=== PATIENT | female | born 1975 | race Caucasian/White ===

== ENCOUNTER 2016-11-11 07:38 | Day surgery (SDC) | payer BC ==
--- NOTE | 2016-10-26 14:59 | NUR ---
PMH, allergies, meds reviewed and documented. Preop and DOS instructions given and handout of Surgical Services and my contact information. Patient was tearful today.
[~2016-11-11] VITALS: Ht 165.1 cm; Wt 137.4 kg
[2016-11-11] VITALS (7 sets, daily range): BP systolic 110–143; BP diastolic 55–77; PULSE 60–75; RESP 12–20; TEMP 97.2–98.5; O2SAT 88–98; Ht 165.1 cm; Wt 137.4 kg
[~2016-11-11 07:38] MED LIST: ACYC200C PO; ATEN25TA PO; DEXT1TAB PO; IPRA42SP EA NOSTRIL; LR 1,000 ML IV SCH; NORG1TAB12 PO; SIMV20TA6 PO; [UNRECOGNIZED DRUG - OTHER] PO
--- OUTSIDE RECORDS SUMMARY | 2016-11-11 07:46 | XMS REPORT | Continuity of Care Document ---
Demographics Preferred Language Unknown Marital Status Unknown Hinduism Affiliation Unknown Race Unknown Ethnic Group Unknown Author Author [facility] Organization [facility] Address Unknown Phone Unavailable Allergies Medications Problems Procedures Results Encounters ACCT No. Visit Date/Time Discharge Status Pt. Type Provider Facility Loc./Unit Complaint [id number] 10/08/2016 15:11:00 ACT Unknown [id number] 10/06/2016 09:38:00 ACT Unknown [id number] 10/06/2016 09:38:00 ACT Unknown [id number] 07/22/2016 12:41:00 ACT Unknown [id number] 06/29/2016 14:06:00 ACT Unknown [id number] 03/03/2016 07:41:00 ACT Unknown [id number] 11/04/2015 07:43:00 ACT Unknown [id number] 10/16/2015 12:46:00 ACT Unknown [id number] 10/16/2015 12:46:00 ACT Unknown [id number] 10/05/2014 08:58:00 ACT Unknown [id number] 09/26/2014 09:45:00 ACT Unknown
--- OUTSIDE RECORDS SUMMARY | 2016-11-11 07:49 | XMS REPORT | CCD ---
Author Author BISI JOHNSON Organization Unknown Address [address], [place] [id number] Phone 0 Care Team Providers Care Viticulture Teacher Name Role Phone MIN DOLL Attending Physician 0 MIN DOLL Primary Surgeon 0 Vital Signs Unknown or Not Available. Allergies Allergy Code Allergy Type Reaction Status AMOXICILLIN 723 Drug allergy Active Procedures Unknown or Not Available. History of Immunizations Immunization Code Date influenza, unspecified formulation 88 07/2016 Problems Unknown or Not Available. Results COMP METABOLIC - Collect Date/Time: 06/10/2016 06:25 Test Name Code Test Result Test Units Test Ref Range GLUCOSE 133 mg/dL L=70 H=110 BUN 8 mg/dL L=7 H=18 CREATININE 0.64 mg/ dL L=0.60 H=1.30 AGE 40 YEARS GFR 102.8 SODIUM 139 mmol/L L=136 H=145 POTASSIUM 3.5 mmol/ L L=3.5 H=5.1 CHLORIDE 103 mmol/L L=98 H=107 CO2 26 mmol/L L=21 H=32 CALCIUM 9.1 mg/dL L=8.5 H=10.1 AST 2 U/L L=15 H=37 ALT 16 U/L L=12 H=78 ALKALINE PHOS 89 U/ L L=50 H=136 TOTAL PROTEIN 7.7 g/ dL L=6.4 H=8.2 ALBUMIN 3.5 g/dL L=3.4 H=5.0 TOTAL BILI 0.30 mg/ dL L=0.00 H=1.00 HGB A1C - Collect Date/Time: 06/10/2016 06:25 Test Name Code Test Result Test Units Test Ref Range HGB A1C 5.9 % L=4.5 H=6.2 eAG 123 mg/dL CBC W/ DIFF - Collect Date/Time: 06/10/2016 06:25 Test Name Code Test Result Test Units Test Ref Range WBC 12.6 x10^3 L=4.8 H=10.8 RBC 5.16 x10^6 L=4.20 H=5.40 HEMOGLOBIN 13.4 g/ dL L=12.0 H=16.0 HEMATOCRIT 39.8 % L=37.0 H=47.0 MCV 77 fL L=80 H=100 MCH 26.0 pg L=27.0 H=33.0 MCHC 33.7 g/dL L=33.0 H=37.0 RDW 14.2 % L=11.5 H=14.5 PLATELETS 336 x10^3 L=150 H=450 MPV 7.2 fL L=7.8 H=11.0 NEUTROPHILS 64.8 % L=40.0 H=80.0 LYMPHOCYTES 18.9 % L=20.0 H=45.0 MONOCYTES 1.7 % L=0.0 H=10.0 EOSINOPHILS 1.2 % L=0.0 H=5.0 BASOPHILS 13.4 % L=0.0 H=2.0 SEG 67 %% L=40 H=80 BAND 3 %% L=0 H=5 LYMPH 19 %% L=20 H=45 MONO 5 %% L=0 H=10 EOS 2 %% L=0 H=5 BASO 0 %% L=0 H=2 ATYP LYMPH 4 %% L=0 H=10 META 0 %% L=0 H=1 REFLEX MAN DIFF YES N/A RBC MORPHOLOGY NORMAL N/A Active Medications No Active Medications Medications Administered During Visit Unknown or Not Available. 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 Discharge Instructions You were admitted to [facility] on 06/10/2016 06:15 with a principal diagnosis of Caldwell's palsy You had the following tests done: CBC W / DIFF COMP METABOLIC HGB A1C You were discharged from [facility] on 06/10/2016 07:37 Should you have any questions prior to discharge, please contact a member of your healthcare team. If you have left the hospital and have any questions, please contact your primary care physician. Chief Complaint and Reason For Visit Chief Complaint Date of Onset Caldwell's palsy Function Status Unknown or Not Available. Plan of Care Unknown or Not Available. Referral/Transition of Care Unknown or Not Available.
--- OUTSIDE RECORDS SUMMARY | 2016-11-11 07:50 | XMS REPORT | CCD ---
Author Author BISI JOHNSON Organization Unknown Address [address], [place] [id number] Phone 0 Care Team Providers Care Sales Force Administrator Name Role Phone MIN DOLL Attending Physician [...] Code Start Date End Date Never smoker [id number] Patient Decision Aids Unknown or Not Available. Discharge Instructions You were admitted to [facility] on 06/10/2016 06:15 with a principal diagnosis of Caldwell's palsy You had the following tests done: CBC W / DIFF COMP METABOLIC HGB A1C You were discharged from [facility] on 06/10/2016 07:37 Should you have any [...]
--- OUTSIDE RECORDS SUMMARY | 2016-11-11 07:53 | XMS REPORT | CCD ---
Author Author BISI JOHNSON Organization Unknown Address [address], [place] [phone] Phone 0 Care Team Providers Care Cushion Installer Name Role Phone MIN DOLL Attending Physician 0 Vital Signs Unknown or Not Available. Allergies Allergy Code Allergy Type Reaction Status AMOXICILLIN 723 Drug allergy Active Procedures Unknown or Not Available. History of Immunizations Immunization Code Date influenza, unspecified formulation 88 07/2016 Problems Unknown or Not Available. Results BASIC METABOLIC - Collect Date/Time: 09/23/2016 16:43 Test Name Code Test Result Test Units Test Ref Range GLUCOSE 99 mg/dL L=70 H=110 BUN 10 mg/dL L=7 H=18 CREATININE 0.59 mg/ dL L=0.60 H=1.30 AGE 40 YEARS GFR 112.9 L=60.0 H=120 SODIUM 140 mmol/L L=136 H=145 POTASSIUM 3.8 mmol/ L L=3.5 H=5.1 CHLORIDE 104 mmol/L L=98 H=107 CO2 27 mmol/L L=21 H=32 CALCIUM 9.6 mg/dL L=8.5 H=10.1 LIPID PANEL - Collect Date/Time: 09/23/2016 16:43 Test Name Code Test Result Test Units Test Ref Range CHOLESTEROL 155 mg/ dL L=0 H=200 TRIGLYCERIDES 207 mg /dL L=30 H=150 HDL 40 mg/dL L=50 H=60 LDL, CALC 74 mg/dL L=0 H=100 VLDL 41 mg/dL L=0 H=40 CHOL/HDL RISK 3.9 RATIO L=0.0 H=4.4 PT FASTING: NO N/A Active Medications Unknown or Not Available. Medications Administered During Visit Unknown or Not Available. Encounters Unknown or Not Available. Social History Smoking Status Code Start Date End Date Never smoker [id number] Patient Decision Aids Unknown or Not Available. Discharge Instructions You were admitted to [facility] on 09/23/2016 16:38 You had the following tests done: BASIC METABOLIC LIPID PANEL You were discharged from [facility] on 09/23/2016 16:38 Should you have any questions prior to discharge, please contact a member of your healthcare team. If you have left the hospital and have any questions, please contact your primary care physician. Chief Complaint and Reason For Visit Chief Complaint Date of Onset LAB Function Status Unknown or Not Available. Plan of Care Unknown or Not Available. Referral/Transition of Care Unknown or Not Available.
--- OUTSIDE RECORDS SUMMARY | 2016-11-11 07:54 | XMS REPORT | CCD ---
Author Author BISI JOHNSON Organization Unknown Address [address], [place] [id number] Phone 0 Care Team Providers Care Poultry Trimmer Name Role Phone MIN DOLL Attending Physician 0 Vital Signs Unknown or Not Available. Allergies Allergy Code Allergy Type Reaction Status AMOXICILLIN 723 Drug allergy Active Procedures Unknown or Not Available. History of Immunizations Immunization Code Date influenza, unspecified formulation 88 07/2016 Problems Unknown or Not Available. Results Unknown or Not Available. Active Medications Unknown or Not Available. Medications Administered During Visit Unknown or Not Available. Encounters Unknown or Not Available. Social History Smoking Status Code Start Date End Date Never smoker [id number] Patient Decision Aids Unknown or Not Available. Discharge Instructions You were admitted to [facility] on 09/30/2016 10:22 You were discharged from [facility] on 09/30/2016 10:22 Should you have any questions prior to discharge, please contact a member of your healthcare team. If you have left the hospital and have any questions, please contact your primary care physician. Chief Complaint and Reason For Visit Chief Complaint Date of Onset MM / US BREAST UNILATERAL 09/24/2016 Function Status Unknown or Not Available. Plan of Care Unknown or Not Available. Referral/Transition of Care Unknown or Not Available.
--- OUTSIDE RECORDS SUMMARY | 2016-11-11 07:55 | XMS REPORT | CCD ---
Author Author BISI JOHNSON Organization Unknown Address [address] [place], [place] [phone] Phone 0 Care Team Providers Care Shoe Repairman Name Role Phone Joshua GRANT Attending Physician 0 Vital Signs Unknown or Not Available. Allergies Unknown or Not Available. Procedures Unknown or Not Available. History of Immunizations Unknown or Not Available. Problems Unknown or Not Available. Results Unknown or Not Available. Active Medications Unknown or Not Available. Medications Administered During Visit Unknown or Not Available. Encounters Encounter Diagnosis Diagnosis Code Start Date Other abnormal and inconclusive findings on diagnostic imaging of breast R928 04/01/2016 Social History Smoking Status Code Start Date End Date Never smoker [id number] Patient Decision Aids Unknown or Not Available. Discharge Instructions You were admitted to [facility] on 04/01/2016 10:25 with a principal diagnosis of Oth abn and inconclusive findings on dx imaging of fred You were discharged from [facility] on 04/01/2016 10:25 Should you have any questions prior to discharge, please contact a member of your healthcare team. If you have left the hospital and have any questions, please contact your primary care physician. Chief Complaint and Reason For Visit Chief Complaint Date of Onset MAMMO Function Status Unknown or Not Available. Plan of Care Unknown or Not Available. Referral/Transition of Care Unknown or Not Available.
[2016-11-11 08:38] LABS: BASOPHILS % (AUTO) 0.3 % (0-2); EOSINOPHILS # (AUTO) 0.2 T/MM3 (0-0.5); EOSINOPHILS % (AUTO) 2.6 % (0-4); HCT - HEMATOCRIT 40.2 % (36-46); HGB - HEMOGLOBIN 12.8 GM/DL (12-16); IMMATURE GRANULOCYTE # (AUTO) 0.01 T/MM3 (0.00-0.03); IMMATURE GRANULOCYTE % (AUTO) 0.2 % (0.0-0.5); LYMPHOCYTES # (AUTO) 2.1 T/MM3 (1-4.8); LYMPHOCYTES % (AUTO) 33.4 % (23-45); MEAN CORPUSCULAR HGB 26.4 UUG (26-34); MEAN CORPUSCULAR HGB CONC(MCHC 31.8 GM/DL (31-37); MEAN CORPUSCULAR VOLUME 82.9 UM3 (80-100); MEAN PLATELET VOLUME 8.7 UM3 (9.4-12.4); MONOCYTES # (AUTO) 0.4 T/MM3 (0-0.8); MONOCYTES % (AUTO) 6.5 % (0-9.0); NEUTROPHILS #(AUTO)-ABSOLUTE 3.5 T/MM3 (1.8-7.7); RED BLOOD COUNT 4.85 M/MM3 (4.00-5.20); WBC - WHITE BLOOD COUNT 6.2 T/MM3 (4.5-11.0)
--- NOTE | 2016-11-11 09:01 | ANESPREOP ---
Anesthesia Record Date and Time DATE: 11/11/16 TIME: 08:59 Proposed Surgical Procedure LEFT WIRE LOCALIZATION OPEN BIOPSY OF BREAST NPO since: 2099 Allergies: Coded Allergies: amoxicillin (Verified Allergy, Mild, 11/11/16) NOT SURE IF IT IS A TRUE ALLERGY. Ht/Wt/BMI Height: 5 ' 5.00 " Weight: 137.400 kg BMI: 50.4 kg/m2 Vital Signs Date Time Temp Pulse Resp B/P Pulse Ox O2 Delivery O2 Flow Rate FiO2 11/11/16 08:06 98.5 74 12 143/77 96 Room Air Medications Inpatient Medications Current Medications Medications (Trade) Dose Ordered Sig/Walt Start Time Stop Time Status Last Admin Dose Admin Lactated Ringer's (Lactated Ringers) 1,000 ml @ 100 mls/hr Q10H 11/11/16 07:00 11/11/16 08:33 100 MLS/HR Acyclovir (Acyclovir) 200 Mg Capsule, 2 CAP PO TIDPRN, (Reported) Last Taken: on Unknown Date & Time Atenolol (Atenolol) 25 Mg Tablet, 1 TAB PO DAILY, (Reported) Last Taken: on 11/11/16 0615 Dextromethorphan HBr/Chlor-Mal (Coricidin Hbp Cough & Cold Tab) 1 Each Tablet, 1 TAB PO DAILY PRN for COLD SYMPTOMS, (Reported ) Last Taken: on 11/10/16 0800 Ipratropium [place] (Ipratropium [place] 0.06% Nasal [place]) 15 Ml [place], 2 SPRAY EA NOSTRIL TID, (Reported) Last Taken: on 11/09/16 0800 Norgestimate-Ethinyl Estradiol (Sprintec 28 Day Tablet) 1 Tab Tablet, 1 TAB PO DAILY, (Reported) Last Taken: on 11/11/16 0615 Simvastatin (Simvastatin) 20 Mg Tablet, 1 TAB PO DAILY, (Reported) Last Taken: on 11/10/16 2100 [Imuplex] , 1 TAB PO DAILY, (Reported) Last Taken: on 11/10/16 0800 Currently on Beta Lani: No Medical/Surgical History Anesthesia PMH: Reports: *Hypertension, Deep Vein Thrombosis, Hyperlipidemia, Obesity (morbidly), Other (allergy with slight cough. No fever) Smoking Status: Never smoker Use Chewing Tobacco?: No Second Hand Exposure: No Substance Use Type: does not use Alcohol Intake: none HX of Last Menstrual Period: OCT 15, 2016 Past Surgical History Orthopedic Surgeries: Abdominal Surgeries: Genitourinary Surgeries: Cardiac Surgeries: Endocrine Surgeries: Reproductive Surgeries: Yes - C SECTION; LT BREAST BIOPSY Neurological Surgeries: Ear Surgeries: Nose Surgeries: Throat Surgeries: Other Surgeries: Anesthesia Adverse Reactions: FOUND none Family Hx of Anesthesia Advers: none Hx of Motion Sickness: No Pertinent Findings Laboratory Tests 11/11/16 08:33 Test 11/11/16 08:33 Human Chorionic Gonadotropin, Qual Negative (NEGATIVE) Physical Exam Respiratory: Bilat breath sounds equal, Lungs clear Cardiovascular: FOUND Regular rate, rhythm Airway Assessment Mallampati Score: I TMD: 3 Fingerbreadths Neck Extension: Fair Overall Assessment: No Airway Concerns ASA: 3 Plan Anesthesia Plan: TIVA, LMA, GETA Discussion Discussed risks/options/alternatives of anesthesia and questions answered. Patient consents. Nursing pain assessment noted. Present: Family Member Attestation Statement Prior to the delivery of any anesthetic medication, I examined the patient, developed the plan, obtained the patient's consent and discussed the risk and benefits of the procedure with the patient/guardian. HERVE OGDEN CRNA Nov 11, 2016 09:01
[2016-11-11] MEDS ORDERED: LIDOCAINE 1% 30ml (STERI-PAK) ONE (09:04)
[2016-11-11] MEDS ORDERED: PROPOFOL 500mg 50 ML IV ONE ×2 (09:08→10:46)
[2016-11-11] MEDS ORDERED: MIDAZOLAM 2mg/2ml INJECTION ONE (09:11)
[2016-11-11] MEDS ORDERED: FENTANYL 100mcg/2ml INJECTION ONE (09:11)
[2016-11-11] MEDS ORDERED: PROPOFOL 200mg 20 ML IV ONE (09:11)
--- NOTE | 2016-11-11 09:31 | NUR ---
RADIOLOGY PT TAKEN TO [facility]
[2016-11-11] MEDS ORDERED: LIDOCAINE 1% (10mg/ml) 30ml SDV ONE (10:05)
[2016-11-11] MEDS ORDERED: BUPIVACAINE 0.25%/EPI 1:200,000 30ml SDV ONE (10:05)
[2016-11-11] MEDS ORDERED: ONDANSETRON 4mg/2ml INJECTION ONE (10:31)
[2016-11-11] MEDS ORDERED: DEXAMETHASONE 4mg/ml - 1ml INJECTION ONE (10:31)
[2016-11-11] MEDS ORDERED: HYDROMORPHONE 2mg/ml INJECTION ONE (10:32)
[2016-11-11] MEDS ORDERED: LR 1,000 ML IV SCH (11:23)
--- NOTE | 2016-11-11 11:26 | GSPOSTPROC ---
Immediate Operative Note DATE: 11/11/16 TIME: 11:25 Postop Diagnosis: * Left breast mass Surgery Lateral: Left Surgical Procedure: Other (open breast biopsy) Surgeon: Maykel ASA: 3 SKIP ONTIVEROS MD Nov 11, 2016 11:26
[2016-11-11] MEDS ORDERED: HYDR-4246 PO (11:27)
[2016-11-11] MEDS ORDERED: HYDROCODONE/APAP 5 mg/325 mg TABLET PO PRN (11:30)
[2016-11-11] MEDS ORDERED: METOCLOPRAMIDE 10mg/2ml INJECTION IV PRN (11:30)
[2016-11-11] MEDS ORDERED: HYDROMORPHONE 2mg/ml INJECTION IV PRN (11:30)
[2016-11-11] MEDS ORDERED: KETOROLAC 30mg/ml INJECTION IV PRN (11:30)
--- NOTE | 2016-11-11 12:00 | ANESPO ---
Post-Op Note Date 11/11/16 Time: 11:59 Status Pt Participated in Evaluation: Pt participated in person Vital Signs Date Time Temp Pulse Resp B/P Pulse Ox O2 Delivery O2 Flow Rate FiO2 11/11/16 11:30 60 14 119/55 94 Nasal Cannula 2.00 11/11/16 11:22 97.2 Respiratory Function: Airway patent, Regular respirations Cardiovascular Function: Regular pulse Mental Status: Alert/oriented Pain Level Intensity: 0 Hydration: Taking po fluids Complications during Recovery None apparent Follow-Up Instructions Instructions Per Surgeon HERVE OGDEN CRNA Nov 11, 2016 12:00
--- NOTE | 2016-11-11 21:56 | OPNOTEF ---
DATE OF OPERATION 11/11/2016 SURGEON Sung Brar MD PREOPERATIVE DIAGNOSIS Left breast mass. POSTOPERATIVE DIAGNOSIS Left breast mass of the lower outer quadrant - pathology pending. PROCEDURE Left breast wire-localized open breast biopsy. ANESTHESIA General. ASA Class 3 INDICATIONS The patient is a 41-year-old female who had had a mass that was being followed in the left breast on breast imaging. There had been slight enlargement of the mass on repeat mammography and so a biopsy was attempted but was discordant with the imaging findings that were given a BI-RADS 4 category. Because of the discordant findings open surgical biopsy was recommended. FINDINGS The specimen mammogram did reveal excision of the clip and the mass per the verbal radiology report prior to closure. DESCRIPTION OF PROCEDURE After informed consent was obtained the patient was taken to the operating room and placed in supine position. Preoperative wire localization had been performed in the radiology department. The patient's left breast was then prepped and draped in the usual sterile fashion. Local was injected along the planned curvilinear incision in the left lower quadrant. Incision was then made with a 15-blade scalpel and dissection along the localization wire was performed with scissors. Electrocautery was then used to dissect out the tissue in the region of the thickened portion of the wire. Based on the preoperative mammogram following wire localization more tissue was taken from the anterior and medial aspect of the tissue around the localization wire. Once the biopsy specimen had been excised it was marked with a single stitch anterior, long stitch lateral, and short stitch superior. It was sent for specimen mammogram which was returned to the operating room by verbal report from the radiologist. Following removal of the specimen the anterior aspect of the biopsy cavity was marked with a hemoclip. The wound was irrigated and verified to be hemostatic. The dermis was reapproximated with buried interrupted 3-0 Vicryl stitches. The skin was closed with a running subcuticular 4-0 Monocryl stitch. Dermabond was placed as a dressing. The patient tolerated the procedure well. She was awakened and transferred to the recovery area in stable condition. SEBASTIEN
== END 2016-11-11 12:33 | disposition home or self-care (01) ==
LOC: SCU 07:38
PROVIDERS: ATTEND Surgery
DX: D24.2 Benign neoplasm of left breast (principal); N60.82 Other benign mammary dysplasias of left breast; I10 Essential (primary) hypertension; E78.5 Hyperlipidemia, unspecified; Z79.3 Long term (current) use of hormonal contraceptives; Z79.899 Other long term (current) drug therapy; Z88.1 Allergy status to other antibiotic agents
CPT/HCPCS: 19125; 19281; 36415; 84703; 85025; J1100; J1170; J2250; J2405; J2704; J3010; J7120; S0020